=== PATIENT | male | born 1950 | race African-American/Black ===

== ENCOUNTER 2017-01-07 08:45 | Emergency (ER) | payer MEDICARE, OTHER ==
[~2017-01-07] VITALS: Ht 170.2 cm; Wt 104.3 kg
[~2017-01-07 08:45] MED LIST: ACETAMINOPHEN-1 EAC1 ORAL; ALBUTEROL SULF8.5 GM INH; AMBIEN10 MG PO; AMLODIPINE BESY10 MG ORAL; AZELASTINE137 MCG/0. NS; AZITHROMYCIN250 MG ORAL; CELEBREX200 MG ORAL; CELEBREX200 MG PO; CLARITIN10 M2 ORAL; COLACE100 MG PO; COZAAR25 MG ORAL; COZAAR25 MG PO; COZAAR50 MG ORAL; CYCLOBENZAPRINE10 MG ORAL; FLONASE1 SPRAYS; FUROSEMIDE20 M1 ORAL; FUROSEMIDE40 MG ORAL; GABAPENTIN300 MG ORAL; GUAIFENESIN1200 MG PO; HYDROCHLOROTHIA25 MG ORAL; IBUPROFEN600 MG ORAL; INDOCIN25 MG ORAL; INDOCIN25 MG PO; KEFLEX250 MG ORAL; KEFLEX500 MG ORAL; LOSARTAN-HCTZ1 EAC2; MEDROL DOSEPAK4 MG ORAL; NORCO 5-325 TA1 EACH ORAL; OMEPRAZOLE10 M1 ORAL; PHENERGAN6.25 MG/5 ORAL; PROMETHAZINE-C118 M1 ORAL; PROTONIX20 MG PO; REGLAN10 MG PO; TYLENOL325 MG ORAL; ULTRAM50 MG PO; UNKNOWN BP MED; VALIUM2 MG ORAL; ZITHROMAX250 MG ORAL
--- NOTE | 2017-01-07 09:08 | Emergency Room Report ---
History of Present Illness General Chief Complaint: Upper Respiratory Illness Source: Patient, Medical Record Present Illness HPI Patient presents with complaints of cough and congestion for the past 7 days Complaining that he has increased sputum production at this time Denies any chest pain denies any pleurisy Denies any obvious fevers Denies any neck pain or photophobia Denies any leg swelling As the symptoms persisted he was concerning came to the ER He also feels his sinuses are irritated Allergies: Coded Allergies: IODINE (Verified Allergy, Unknown, 06/07/10) Patient History Past Medical History: see triage record Pertinent Family History: none Reviewed Nursing Documentation: PMH: Agreed, PSxH: Agreed Nursing Documentation-PMH Hx Hypertension: Yes Hx Asthma: No Hx COPD: No Hx Diabetes: No Hx Cancer: Yes - right kindey Hx Gastrointestinal Problems: Yes Hx Dialysis: No Hx Neurological Problems: No Review of Systems All Other Systems: negative except mentioned in HPI Physical Exam Vital Signs Date Time Temp Pulse Resp B/P Pulse Ox O2 Delivery O2 Flow Rate FiO2 01/07/17 08:50 98.1 84 16 127/73 97 Room Air Sp02 EP Interpretation: reviewed, normal General Appearance: well appearing, no apparent distress Head: normocephalic, atraumatic Eyes: bilateral eye EOMI, bilateral eye PERRL ENT: hearing grossly normal, normal pharynx, TMs + canals normal, uvula midline Neck: full range of motion, supple, no meningismus, no bony tend Respiratory: lungs clear, normal breath sounds, no rhonchi, no respiratory distress, no retraction, no accessory muscle use Cardiovascular #1: normal peripheral pulses, regular rate, rhythm, no edema, no gallop, no JVD, no murmur Gastrointestinal: normal bowel sounds, non tender, soft, no mass, no organomegaly, non-distended, no guarding, no hernia, no pulsatile mass, no rebound Genitourinary: no CVA tenderness Musculoskeletal: normal inspection, back normal Neurologic: oriented x3, responsive, engine dynamometer tester III-XII nml as tested, motor strength/ tone normal, sensory intact Psychiatric: mood/affect normal Skin: normal color, no rash, warm/dry, palpation normal Lymphatic: normal inspection, no adenopathy Medical Decision Making Diagnostic Impression: Primary Impression: Sinusitis ER Course Her chest x-ray imaging and examination here is appropriate Patient has done well throughout his stay was given breathing treatment Appears to have a component of sinus infection as well and was placed on antibiotics for that At this time stable for close outpatient followup Chest X-Ray Diagnostic Results EP Interpretation: Yes Findings: no consolidation, no effusion, no pneumothorax Number of Views: 1 Last Vital Signs Date Time Temp Pulse Resp B/P Pulse Ox O2 Delivery O2 Flow Rate FiO2 01/07/17 09:04 88 14 Room Air 01/07/17 08:50 98.1 127/73 97 Status: improved Disposition: HOME, SELF-CARE Condition: Stable Scripts Guaifenesin/Codeine Phos* (ROBITUSSIN AC*) 118 Ml Liquid 5 ML ORAL Q8HR Y for For Cough, #118 ML 0 Refills Prov: TOM KOO D.O. 01/07/17 Cetirizine Hcl* (ZYRTEC*) 10 Mg Tablet 10 MG ORAL DAILY, #20 TAB 0 Refills Prov: TOM KOO D.O. 01/07/17 Azithromycin* (ZITHROMAX*) 250 Mg Tablet 250 MG ORAL DAILY, #6 TAB 0 Refills Take two tablets by mouth today, then take one tablet by mouth daily for four days Prov: TOM KOO D.O. 01/07/17 Additional Instructions: Patient is provided with the discharge instructions notified to follow up with primary doctor in the next 2-3 days otherwise return to the er with any worsening symptoms. Please note that this report is being documented using [employer] technology. This can lead to erroneous entry secondary to incorrect interpretation by the dictating instrument. TOM KOO D.O. Jan 07, 2017 09:08
[2017-01-07] MEDS: Ipratropium 0.02% Inh Soln 2.5ml UD HHN ONE (09:36)
[2017-01-07] MEDS: Albuterol ud Inhalation HHN ONE (09:36)
[2017-01-07] MEDS ORDERED: ZYRTEC10 MG ORAL (09:41)
[2017-01-07] MEDS ORDERED: AZITHROMYCIN250 MG ORAL (09:41)
[2017-01-07] MEDS ORDERED: GUAIFENESIN-CO118 M1 ORAL (09:41)
[2017-01-07 10:16] VITALS: BP 122/67
--- NOTE | 2017-01-07 13:54 | Diagnostic Imaging Report ---
Indication: Dyspnea Comparison: 08/18/16 A single view chest radiograph was obtained. Findings: No definite infiltrate or pulmonary vascular congestion identified. The heart is normal in size. The aorta is mildly enlarged consistent with atherosclerotic vascular disease. The bones are osteopenic. Impression: No acute disease
== END 2017-01-07 10:16 | disposition home or self-care (01) ==
LOC: EMR 09:24
DX: J06.9 Acute upper respiratory infection, unspecified (principal); R05 Cough; I10 Essential (primary) hypertension; Z85.528 Personal history of other malignant neoplasm of kidney
CPT/HCPCS: 71010; 94640; 94664; 99284

== ENCOUNTER 2017-05-08 20:51 | Emergency (ER) | payer MEDICARE, OTHER ==
[~2017-05-08] VITALS: Ht 170.2 cm; Wt 94.8 kg
[~2017-05-08 20:51] MED LIST changes: +GUAIFENESIN-CO118 M1 ORAL; +ZYRTEC10 MG ORAL
[2017-05-08 21:10] VITALS: BP 165/71
[2017-05-08] MEDS ORDERED: CLARITIN-D 121 EAC1 ORAL (21:19)
--- NOTE | 2017-05-08 21:25 | Emergency Room Report ---
History of Present Illness General Chief Complaint: Earache Source: Patient Present Illness HPI Patient is a 66-year-old male presented after increased left-sided earache. Patient gradual onset of symptoms. Patient had recurrent left-sided ear infections. Patient reported having increased pain to his left ear. This is sharp in nature. He had not been having any fever. He reported having some slight decreased hearing. He had previously seen ENT. Patient had prior history of one kidney. He denied any tinnitus or difficulty breathing Allergies: Coded Allergies: IODINE (Verified Allergy, Unknown, 06/07/10) Patient History Reviewed Nursing Documentation: PMH: Agreed, PSxH: Agreed Nursing Documentation-PM Past Medical History: No History, Except For Hx Hypertension: Yes Hx Asthma: No Hx COPD: No Hx Diabetes: No Hx Cancer: Yes - right kindey Hx Gastrointestinal Problems: Yes Hx Dialysis: No Hx Neurological Problems: No Review of Systems All Other Systems: negative except mentioned in HPI Physical Exam Vital Signs Date Time Temp Pulse Resp B/P Pulse Ox O2 Delivery O2 Flow Rate FiO2 05/08/17 21:04 97.5 89 16 165/71 100 Room Air General Appearance: well appearing, no apparent distress, alert, GCS 15 Head: normocephalic, atraumatic ENT: hearing grossly normal, normal voice Neck: full range of motion, supple Respiratory: no respiratory distress, speaking full sentences Cardiovascular #1: normal inspection, regular rate, rhythm, no edema Gastrointestinal: normal inspection Musculoskeletal: no calf tenderness Neurologic: normal gait Psychiatric: mood/affect normal Skin: no rash Medical Decision Making Diagnostic Impression: Primary Impression: Earache, left Additional Impression: Acute serous otitis media, left ear ER Course Patient presented for ear pain. Differential diagnosis included was not limited to otitis media, serous otitis, malignant otitis externa, foreign body , cellulitis, mastoiditis, carotid dissection, myocardial infarction among others. Patient's benign exam and does not appear to require any further imaging or laboratory testing at this time. Patient advised to gargle salt water. Patient is advised followup with ENT. Patient advised to return if he had any concerns. He is given prescription for Claritin-D. Last Vital Signs Date Time Temp Pulse Resp B/P Pulse Ox O2 Delivery O2 Flow Rate FiO2 05/08/17 21:04 97.5 89 16 165/71 100 Room Air Status: unchanged Disposition: HOME, SELF-CARE Condition: Stable Scripts Loratadine/Pseudoephedrine (CLARITIN-D 12 HOUR TABLET) 1 Each Tab.er.12h 1 TAB ORAL EVERY 12 HOURS, #30 TAB Prov: Narayan Burkett 05/08/17 Patient Instructions: Serous Otitis Media Narayan Burkett May 08, 2017 21:25
== END 2017-05-08 21:38 | disposition home or self-care (01) ==
LOC: EMR 21:38
DX: H65.02 Acute serous otitis media, left ear (principal); I10 Essential (primary) hypertension; Z85.528 Personal history of other malignant neoplasm of kidney
CPT/HCPCS: 99283

== ENCOUNTER 2017-06-01 10:04 | Emergency (ER) | payer MEDICARE, OTHER ==
[~2017-06-01] VITALS: Ht 167.6 cm; Wt 86.2 kg
[~2017-06-01 10:04] MED LIST changes: +CLARITIN-D 121 EAC1 ORAL
[2017-06-01 10:25] VITALS: BP 147/72
--- NOTE | 2017-06-01 12:37 | Emergency Room Report ---
History of Present Illness General Chief Complaint: Upper Extremity Injury Source: Patient Present Illness HPI Patient states he notes a blister on his right hand that started about a week ago. He states that it has gotten larger and a little bit red. He is concerned about an infection. He denies fever or chills. He has no other complaints. Allergies: Coded Allergies: IODINE (Verified Allergy, Unknown, 06/07/10) Patient History Past Surgical History: other - 1 kidney, multiple MSK surgeries. Social History: Denies: alcohol use, drug use, smoking Reviewed Nursing Documentation: PMH: Agreed, PSxH: Agreed Nursing Documentation-PMH Hx Hypertension: Yes Hx Asthma: No Hx COPD: No Hx Diabetes: No Hx Cancer: Yes - right kindey Hx Gastrointestinal Problems: Yes Hx Dialysis: No Hx Neurological Problems: No Review of Systems All Other Systems: negative except mentioned in HPI Physical Exam Vital Signs Date Time Temp Pulse Resp B/P Pulse Ox O2 Delivery O2 Flow Rate FiO2 06/01/17 10:18 98.4 89 14 150/75 97 Room Air Sp02 EP Interpretation: reviewed, normal General Appearance: no apparent distress, alert, GCS 15, non-toxic Head: normocephalic, atraumatic Eyes: bilateral eye PERRL, bilateral eye normal inspection ENT: hearing grossly normal, normal pharynx, no angioedema, normal voice Neck: full range of motion, supple/symm/no masses Respiratory: no respiratory distress, no retraction, no accessory muscle use, speaking full sentences Rectal: deferred Musculoskeletal: back normal, gait/station normal, normal range of motion, other - L. hand with dime sized lesion with clear fluid and mild erythema surrounding it. Neurologic: alert, oriented x3, responsive, motor strength/tone normal, sensory intact, speech normal Psychiatric: judgement/insight normal, memory normal, mood/affect normal, no suicidal/homicidal ideation Skin: normal color, no rash, warm/dry, well hydrated Medical Decision Making Diagnostic Impression: Primary Impression: Blister ER Course Patient has findings on the hand consistent with a posterior. There was a small amount of erythema around the blister. I will go ahead and give the patient a course of antibiotics as a precaution. However, there is no significant infection identified. The patient is given return precautions and followup instructions. Last Vital Signs Date Time Temp Pulse Resp B/P Pulse Ox O2 Delivery O2 Flow Rate FiO2 06/01/17 10:25 98.3 85 14 147/72 97 Room Air Status: improved Disposition: HOME, SELF-CARE Condition: Improved Referrals: NON PHYSICIAN (PCP) JOSE MITCHELL D.O. Jun 01, 2017 12:37
[2017-06-01] MEDS ORDERED: DOXYCYCLINE MO100 MG ORAL (12:38)
[2017-06-01 12:54] VITALS: BP 144/69
[2017-06-01 12:55] VITALS: BP 144/69
== END 2017-06-01 12:56 | disposition home or self-care (01) ==
LOC: EMR 10:29
DX: S60.521A Blister (nonthermal) of right hand, initial encounter (principal); X58.XXXA Exposure to other specified factors, initial encounter; Y92.89 Other specified places as the place of occurrence of the external cause; I10 Essential (primary) hypertension; Z85.528 Personal history of other malignant neoplasm of kidney
CPT/HCPCS: 99283

== ENCOUNTER 2017-06-01 12:53 | Outpatient (CLI) | payer MEDICARE, OTHER ==
[~2017-06-01 12:53] MED LIST changes: +DOXYCYCLINE MO100 MG ORAL
[2017-06-01 13:19] LABS: BASOPHILS % (AUTO) 1.2 % (0.0-2.0); EOSINOPHILS % (AUTO) 1.3 % (0.0-3.0); LYMPHOCYTES % (AUTO) 26.2 % (20.0-45.0); MEAN CORPUSCULAR HEMOGLOBIN 28.2 PG (27.0-31.0); MEAN CORPUSCULAR HGB CONC 32.1 G/DL (32.0-36.0); MEAN CORPUSCULAR VOLUME 88 FL (80-99); MEAN PLATELET VOLUME 8.7 FL (6.5-10.1); NEUTROPHILS % (AUTO) 66.3 % (45.0-75.0); PLATELET COUNT 239 K/UL (150-450); RED BLOOD COUNT 4.69 M/UL (4.70-6.10); WHITE BLOOD COUNT 8.9 K/UL (4.8-10.8)
[2017-06-01 13:29] LABS: ALBUMIN/GLOBULIN RATIO 1.1 (1.0-2.7); CALCIUM 9.3 mg/dL (8.6-10.2); CREATININE 1.5 mg/dL (0.7-1.2); GLOMERULAR FILTRATION RATE 56.6 mL/min (>60); POTASSIUM 4.2 mEQ/L (3.4-4.9); TOTAL PROTEIN 8.3 g/dL (6.6-8.7)
[2017-06-02 10:15] LABS: PSA % FREE 30.8 % (.); PSA FREE 0.4 ng/mL; PSA TOTAL 1.3 ng/mL (0.0-4.0)
== END 2017-06-01 14:53 | disposition home or self-care (01) ==
LOC: LAB 12:53
DX: I10 Essential (primary) hypertension (principal); M54.9 Dorsalgia, unspecified
CPT/HCPCS: 36415; 80053; 80061; 84153; 84154; 85025

== ENCOUNTER 2017-10-17 14:26 | Outpatient (CLI) | payer MEDICARE, OTHER ==
[2017-10-17 14:55] LABS: BASOPHILS % (AUTO) 1.3 % (0.0-2.0); EOSINOPHILS % (AUTO) 2.1 % (0.0-3.0); MEAN CORPUSCULAR HEMOGLOBIN 27.7 PG (27.0-31.0); MEAN CORPUSCULAR HGB CONC 31.2 G/DL (32.0-36.0); MEAN CORPUSCULAR VOLUME 89 FL (80-99); MEAN PLATELET VOLUME 8.8 FL (6.5-10.1); MONOCYTES % (AUTO) 4.4 % (1.0-10.0); NEUTROPHILS % (AUTO) 61.2 % (45.0-75.0); PLATELET COUNT 202 K/UL (150-450); RED BLOOD COUNT 4.68 M/UL (4.70-6.10); RED CELL DISTRIBUTION WIDTH 12.9 % (11.6-14.8)
[2017-10-17 15:21] LABS: ALANINE AMINOTRANSFERASE 46 U/L (12-78); ALBUMIN/GLOBULIN RATIO 0.8 (1.0-2.7); ANION GAP 9 mmol/L (5-15); ASPARTATE AMINO TRANSFERASE 28 U/L (15-37); CALCIUM 9.5 MG/DL (8.5-10.1); CARBON DIOXIDE 26 MMOL/L (21-32); CHLORIDE 101 MMOL/L (98-107); CREATININE 1.9 MG/DL (0.55-1.30); SODIUM 136 MMOL/L (136-145); TOTAL PROTEIN 8.6 G/DL (6.4-8.2)
== END 2017-10-17 16:26 | disposition home or self-care (01) ==
LOC: LAB 14:26
DX: I10 Essential (primary) hypertension (principal)
CPT/HCPCS: 36415; 80053; 85025

== ENCOUNTER 2018-01-18 16:20 | Emergency (ER) | payer MEDICARE, OTHER ==
[~2018-01-18] VITALS: Ht 170.2 cm; Wt 99.8 kg
--- NOTE | 2018-01-18 16:41 | Emergency Room Report ---
History of Present Illness General Chief Complaint: Pain Source: Patient, Medical Record Present Illness HPI 67-year-old male walk-in with 2-3 days of right and left side pain. States pain worse when he leans on the right side when he is reading in bed or in car. States better when he stands up, stretched States that one month ago he had URI symptoms including a "bad cough". He was treated and evaluated by his PMD for this already, but he is "still getting over". He did not take any pain medication He has history of right nephrectomy many years ago, CK D, hypertension Is mostly interested in just "making sure I'm okay". Allergies: Coded Allergies: IODINE (Verified Allergy, Unknown, 06/07/10) Patient History Past Medical History: HTN, renal disease Past Surgical History: other - right nephrectomy Pertinent Family History: none Social History: Denies: smoking, alcohol use, drug use Immunizations: UTD Reviewed Nursing Documentation: PMH: Agreed, PSxH: Agreed Nursing Documentation-PMH Hx Hypertension: Yes Hx Asthma: No Hx COPD: No Hx Diabetes: No Hx Cancer: Yes - right kindey Hx Gastrointestinal Problems: Yes - acid reflux Hx Dialysis: No Hx Neurological Problems: No Review of Systems All Other Systems: negative except mentioned in HPI Physical Exam Vital Signs Date Time Temp Pulse Resp B/P (MAP) Pulse Ox O2 Delivery O2 Flow Rate FiO2 01/18/18 16:27 97.8 91 18 168/83 96 Room Air 97.9 Sp02 EP Interpretation: reviewed, normal General Appearance: normal inspection, well appearing, no apparent distress, alert, GCS 15, non-toxic Head: normocephalic, atraumatic Eyes: bilateral eye PERRL, bilateral eye EOMI ENT: normal ENT inspection, hearing grossly normal, normal pharynx, no angioedema, normal voice, TMs + canals normal, uvula midline, moist mucus membranes Neck: normal inspection, full range of motion, supple, thyroid normal, no meningismus, no bony tend Respiratory: normal inspection, lungs clear, normal breath sounds, no rhonchi, no respiratory distress, no retraction, no accessory muscle use, no wheezing, speaking full sentences, other - Bilateral R>L lower chest wall/rib ttp. Cardiovascular #1: regular rate, rhythm, no edema, no JVD, normal capillary refill Gastrointestinal: normal inspection, normal bowel sounds, non tender, soft, no mass, no peritonitis, non-distended, no guarding, no hernia, no pulsatile mass Genitourinary: no CVA tenderness Musculoskeletal: normal inspection, back normal, normal range of motion, no calf tenderness, pelvis stable, Mamta's Sign negative Neurologic: normal inspection, alert, oriented x3, responsive, echocardiograph tech III-XII nml as tested, motor strength/tone normal, cerebellar normal, normal gait, speech normal Psychiatric: normal inspection, judgement/insight normal, mood/affect normal, no suicidal/homicidal ideation, no delusions Skin: normal inspection, normal color, no rash Lymphatic: normal inspection, no adenopathy Medical Decision Making Diagnostic Impression: Primary Impression: Right-sided chest wall pain Additional Impression: Costochondral chest pain ER Course Vital signs stable, afebrile Exam tenderness is more the chest wall, right and left lower ribs Is no focal abdominal tenderness on exam or CVAT Likely costochondritis given recent URI symptoms Advised patient take Tylenol, apply ice as needed for pain Avoid NSAIDs given nephrectomy and known CK D states he doesn't want any pain medication, prescriptions, just wants to be reassured ER course: Patient has remained stable during ED stay. Disposition: Patient is to be discharged to home. Patient is instructed to follow up with their primary care doctor within 5 days. Strict return precautions discussed with patient such as fever, chills, worsening/severe pain, nausea, vomiting, which may indicate severe illness. Patient verbalizes understanding and agrees with plan. Please note that this Emergency Department Report was dictated using [employer] engineer technology software, occasionally this can lead to erroneous entry secondary to interpretation by the dictation equipment Last Vital Signs Date Time Temp Pulse Resp B/P (MAP) Pulse Ox O2 Delivery O2 Flow Rate FiO2 01/18/18 16:27 97.8 91 18 168/83 96 Room Air 97.9 Status: improved Disposition: HOME, SELF-CARE EVELIO HERNANDEZ M.D. Jan 18, 2018 16:41
[2018-01-18 16:47] VITALS: BP 168/83
[2018-01-18 17:03] VITALS: BP 139/49
== END 2018-01-18 17:03 | disposition home or self-care (01) ==
LOC: EMR 17:00
DX: R07.89 Other chest pain (principal); I10 Essential (primary) hypertension; K21.9 Gastro-esophageal reflux disease without esophagitis; Z85.528 Personal history of other malignant neoplasm of kidney; Z90.5 Acquired absence of kidney
CPT/HCPCS: 99283

== ENCOUNTER → 2018-04-26 | Outpatient (CLI) | payer MEDICARE, OTHER ==
[2018-04-26 14:18] LABS: BASOPHILS % (AUTO) 1.4 % (0.0-2.0); EOSINOPHILS % (AUTO) 2.3 % (0.0-3.0); HEMATOCRIT 40.8 % (42.0-52.0); HEMOGLOBIN 13.2 G/DL (14.2-18.0); MEAN CORPUSCULAR VOLUME 85 FL (80-99); MONOCYTES % (AUTO) 4.3 % (1.0-10.0); PLATELET COUNT 224 K/UL (150-450); RED BLOOD COUNT 4.81 M/UL (4.70-6.10); RED CELL DISTRIBUTION WIDTH 12.6 % (11.6-14.8); WHITE BLOOD COUNT 7.9 K/UL (4.8-10.8)
[2018-04-26 15:01] LABS: ALANINE AMINOTRANSFERASE 33 U/L (12-78); ALBUMIN 3.7 G/DL (3.4-5.0); ALBUMIN/GLOBULIN RATIO 0.8 (1.0-2.7); ALKALINE PHOSPHATASE 134 U/L (46-116); ANION GAP 9 mmol/L (5-15); ASPARTATE AMINO TRANSFERASE 20 U/L (15-37); BILIRUBIN,TOTAL 0.8 MG/DL (0.2-1.0); BLOOD UREA NITROGEN 10 mg/dL (7-18); CALCIUM 8.8 MG/DL (8.5-10.1); CARBON DIOXIDE 27 MMOL/L (21-32); CHLORIDE 104 MMOL/L (98-107); CHOLESTEROL 124 MG/DL (< 200); CREATININE 1.7 MG/DL (0.55-1.30); HDL CHOLESTEROL 44 MG/DL (40-60); POTASSIUM 4.3 MMOL/L (3.5-5.1); SODIUM 140 MMOL/L (136-145); TRIGLYCERIDES 118 MG/DL (30-150)
== END | disposition home or self-care (01) ==
LOC: LAB 14:00
DX: I10 Essential (primary) hypertension (principal); M54.9 Dorsalgia, unspecified
CPT/HCPCS: 36415; 80053; 80061; 85025

== ENCOUNTER 2018-06-19 10:25 | Emergency (ER) | payer MEDICARE, OTHER ==
[~2018-06-19] VITALS: Ht 167.6 cm; Wt 95.3 kg
[2018-06-19 10:35] VITALS: BP 153/73
[2018-06-19] MEDS ORDERED: Ipratropium 0.02% Inh Soln 2.5ml UD HHN ONE (11:00)
[2018-06-19] MEDS ORDERED: Albuterol ud Inhalation HHN ONE (11:00)
[2018-06-19] MEDS ORDERED: ALBUTEROL SULF8.5 GM INH (11:24)
[2018-06-19] MEDS ORDERED: PREDNISONE20 MG ORAL (11:24)
[2018-06-19] MEDS ORDERED: AMOXICILLIN500 MG ORAL (11:24)
[2018-06-19] MEDS ORDERED: PROMETHAZINE-C118 M1 ORAL (11:24)
[2018-06-19 11:30] VITALS: BP 153/73
--- NOTE | 2018-06-21 06:52 | Emergency Room Report ---
History of Present Illness General Chief Complaint: Upper Respiratory Illness Source: Patient, Medical Record Present Illness HPI 67-year-old male presents ED for evaluation. Complaining of cough and congestion times one week. Cough is productive with phlegm. States he is trying [id number] medication without relief. States he is using his inhaler without relief. Denies fevers or chills. Denies chest pain or shortness of breath. Denies sick contacts or recent travel. No other aggravating relieving factors. Denies any other associated symptoms Allergies: Coded Allergies: IODINE (Verified Allergy, Unknown, 06/07/10) Patient History Past Medical History: HTN, asthma, GERD Past Surgical History: other - kidney removed Pertinent Family History: none Social History: Denies: smoking, alcohol use, drug use Immunizations: UTD Reviewed Nursing Documentation: PMH: Agreed; PSxH: Agreed Nursing Documentation-PMH Past Medical History: No History, Except For Hx Hypertension: Yes Hx Asthma: No Hx COPD: No Hx Diabetes: No Hx Cancer: Yes - right kindey Hx Gastrointestinal Problems: Yes - acid reflux Hx Dialysis: No Hx Neurological Problems: No Review of Systems All Other Systems: negative except mentioned in HPI Physical Exam Vital Signs Date Time Temp Pulse Resp B/P (MAP) Pulse Ox O2 Delivery O2 Flow Rate FiO2 06/19/18 10:28 98.0 80 18 153/73 97 Room Air 98.1 06/19/18 11:00 21 Sp02 EP Interpretation: reviewed, normal General Appearance: no apparent distress, alert, GCS 15, non-toxic Head: normocephalic, atraumatic Eyes: bilateral eye normal inspection, bilateral eye PERRL ENT: hearing grossly normal, normal pharynx, no angioedema, normal voice Neck: full range of motion, supple/symm/no masses Respiratory: chest non-tender, normal breath sounds, speaking full sentences, wheezing Cardiovascular #1: regular rate, rhythm, no edema Cardiovascular #2: 2+ carotid (R), 2+ carotid (L), 2+ radial (R), 2+ radial (L) , 2+ dorsalis pedis (R), 2+ dorsalis pedis (L) Gastrointestinal: normal bowel sounds, non tender, soft, non-distended, no guarding, no rebound Rectal: deferred Genitourinary: normal inspection, no CVA tenderness Musculoskeletal: back normal, gait/station normal, normal range of motion, non- tender Neurologic: alert, oriented x3, responsive, motor strength/tone normal, sensory intact, speech normal Psychiatric: judgement/insight normal, memory normal, mood/affect normal, no suicidal/homicidal ideation Reflexes: 3+ bicep (R), 3+ bicep (L), 3+ tricep (R), 3+ tricep (L), 3+ knee (R) , 3+ knee (L) Skin: normal color, no rash, warm/dry, well hydrated Lymphatic: no adenopathy Medical Decision Making Diagnostic Impression: Primary Impression: Atypical pneumonia ER Course Hospital Course 67-year-old male presents ED complaining of cough x 1 week Differential diagnoses include: URI, pharyngitis, otitis media, asthma Clinical course Patient placed on stretcher. After initial history, physical exam reveals an elderly male in no acute distress. Bilateral TM unremarkable. No pharyngeal erythema. No tonsillar exudates. No lymphadenopathy. Diffuse wheezing bilaterally Given breathing treatment, prednisone. Wheezing improved on reassessment Given age, comorbidities, presentation we'll treat as atypical pneumonia Diagnosis - atypical pneumonia Stable and discharged home with Rx amoxicillin, promethazine/codeine, prednisone , albuterol. Instructed to followup with PMD. Return to ED if symptoms recur or worsen Last Vital Signs Date Time Temp Pulse Resp B/P (MAP) Pulse Ox O2 Delivery O2 Flow Rate FiO2 06/19/18 11:30 98.1 80 20 153/73 99 Room Air 21 98.1 Status: improved Disposition: HOME, SELF-CARE Condition: Stable Scripts Codeine/Promethazine Hcl* (PROMETHAZINE-CODEINE SYRUP*) 118 Ml Syrup 5 ML ORAL Q6H PRN for For Cough, #118 ML 0 Refills Prov: Tha Michael MD 06/19/18 Albuterol Sulfate* (ALBUTEROL SULFATE MDI*) 8.5 Gm Hfa.aer.ad 2 PUFF INH Q6H, #1 EA 0 Refills Prov: Tha Michael MD 06/19/18 Prednisone* (PREDNISONE*) 20 Mg Tablet 40 MG ORAL DAILY, #10 TAB Prov: Tha Michael MD 06/19/18 Amoxicillin* (AMOXIL*) 500 Mg Capsule 500 MG ORAL THREE TIMES A DAY, #21 CAP Prov: Tha Michael MD 06/19/18 Patient Instructions: Community-Acquired Pneumonia, Adult, [id number] Tha Michael MD Jun 21, 2018 06:52
== END 2018-06-19 11:31 | disposition home or self-care (01) ==
LOC: EMR 10:47
DX: J18.9 Pneumonia, unspecified organism (principal); I10 Essential (primary) hypertension; K21.9 Gastro-esophageal reflux disease without esophagitis; Z85.528 Personal history of other malignant neoplasm of kidney; Z91.048 Other nonmedicinal substance allergy status
CPT/HCPCS: 94640; 94664; 99285

== ENCOUNTER 2018-11-02 14:52 | Emergency (ER) | payer MEDICARE, OTHER ==
[~2018-11-02] VITALS: Ht 170.2 cm; Wt 104.3 kg
[~2018-11-02 14:52] MED LIST changes: +AMOXICILLIN500 MG ORAL; +PREDNISONE20 MG ORAL
[2018-11-02 15:00] VITALS: BP 121/68
--- NOTE | 2018-11-02 15:00 | NUR ---
ED Nurse Note: Pt walked into ED c/o flu like s/s for three days, pt denies fever. Pt AA&ox4, gcs=15, skin warm and dry, resp even and unlabored, noted nonproductive dry cough, -n/v/d, ambulates w/ steady gait, airway patent, nasal congestion noted. Will cont monitor.
--- NOTE | 2018-11-02 15:38 | Emergency Room Report ---
History of Present Illness General Chief Complaint: Upper Respiratory Illness Source: Patient Present Illness HPI 67-year-old male presents to the emergency department complaining of nasal congestion 3 days. Patient reports difficulty breathing through his nose with moderate amount of rhinorrhea. Patient denies sore throat he states he has a dry cough every now and then but otherwise is not complaining of respiratory symptoms. Patient denies headache, photophobia he denies neck pain or stiffness. Patient denies swollen tender lymph nodes. Patient denies fevers or chills. Pt reports cough is not a problem for him right now. He denies pain at this time. Allergies: Coded Allergies: IODINE (Verified Allergy, Unknown, 06/07/10) Patient History Past Medical History: see triage record, HTN, renal disease, other - Ca. Past Surgical History: none Pertinent Family History: none Immunizations: UTD Reviewed Nursing Documentation: PMH: Agreed; PSxH: Agreed Nursing Documentation-PM Past Medical History: No History, Except For Hx Hypertension: Yes Hx Asthma: No Hx COPD: No Hx Diabetes: No Hx Cancer: Yes - right kindey Hx Gastrointestinal Problems: Yes - acid reflux Hx Dialysis: No Hx Neurological Problems: No Review of Systems All Other Systems: negative except mentioned in HPI Physical Exam Vital Signs Date Time Temp Pulse Resp B/P (MAP) Pulse Ox O2 Delivery O2 Flow Rate FiO2 11/02/18 14:56 98.2 100 20 121/68 98 Room Air Sp02 EP Interpretation: reviewed, normal General Appearance: no apparent distress, alert, GCS 15, non-toxic Head: normocephalic, atraumatic Eyes: bilateral eye normal inspection, bilateral eye PERRL ENT: hearing grossly normal, normal pharynx, normal voice, TMs + canals normal , uvula midline, moist mucus membranes, nasal congestion - clear rhinorrhea no purulence, boggy turbinates. mild maxillary sinus ttp, no frontal sinus ttp. Neck: full range of motion Respiratory: chest non-tender, lungs clear, normal breath sounds, speaking full sentences Cardiovascular #1: regular rate, rhythm, normal capillary refill Musculoskeletal: back normal, gait/station normal, normal range of motion, non- tender Neurologic: alert, oriented x3, responsive, motor strength/tone normal, sensory intact, normal gait, speech normal, grossly normal Psychiatric: judgement/insight normal Skin: normal color, no rash, warm/dry, well hydrated Lymphatic: no adenopathy Medical Decision Making PA Attestation Dr. Cantrell is my supervising Physician whom patient management has been discussed with. Diagnostic Impression: Primary Impression: Nasal sinus congestion Additional Impression: Upper respiratory symptom ER Course 67-year-old male presents to the emergency department complaining of nasal congestion 3 days. Patient reports difficulty breathing through his nose with moderate amount of rhinorrhea. Patient denies sore throat he states he has a dry cough every now and then but otherwise is not complaining of respiratory symptoms. Patient denies headache, photophobia he denies neck pain or stiffness. Patient denies swollen tender lymph nodes. Patient denies fevers or chills. Pt reports cough is not a problem for him right now. He denies pain at this time. Ddx considered but are not limited to URI, pneumonia, PE, strep pharyngitis, meningitis. Vital signs: Pt. is afebrile, the remaining VS are WNL H&PE are most consistent with nasal congestion secondary to a URI- no meningeal signs, oropharynx is not involved, no evidence of bacterial infection at this time. Pt. does not meet sinusitis abx criteria. ORDERS: none required at this time, the diagnosis is clinical ED INTERVENTIONS: None required at this time. DISCHARGE: At this time pt. is stable for d/c to home. Will provide printed patient care instructions, and any necessary prescriptions. Care plan and follow up instructions have been discussed with the patient prior to discharge. Last Vital Signs Date Time Temp Pulse Resp B/P (MAP) Pulse Ox O2 Delivery O2 Flow Rate FiO2 11/02/18 15:00 100 20 Room Air 11/02/18 15:00 98.2 121/68 98 Disposition: HOME, SELF-CARE Condition: Stable Scripts Chlorpheniramine Maleate (CHLOR-TRIMETON) 4 Mg Tablet 4 MG PO Q6HR, #30 TAB Prov: Gloria Hilliard 11/02/18 Additional Instructions: Take medications as directed. Follow up with a Primary Care Provider in 3-5 days, even if your symptoms have resolved. --Please review list of primary care clinics, if you do not already have a primary care provider Return sooner to ED if new symptoms occur, or current symptoms become worse. - Please note that this Emergency Department Report was dictated using [employer] developer technology software, occasionally this can lead to erroneous entry secondary to interpretation by the dictation equipment. Gloria Hilliard Nov 02, 2018 15:38
[2018-11-02] MEDS ORDERED: CHLOR-TRIMETON4 MG PO (15:46)
[2018-11-02 15:55] VITALS: BP 118/98
--- NOTE | 2018-11-02 15:55 | NUR ---
ED Nurse Note: Pt discharge instruction provided w/ prescription, id band removed, pt education done via discussion and handout, pt verbalized understanding and agrees with plan, pt advised to follow up with pcp regarding pt's condition, pt advised to return to ed if s/s worsen or new s/s develop.
[2018-11-03] MEDS ORDERED: IBUPROFEN600 MG ORAL (21:22)
[2018-11-03] MEDS ORDERED: ROBAXIN-750750 MG PO (21:22)
== END 2018-11-02 16:10 | disposition home or self-care (01) ==
LOC: EMR 15:58
DX: R09.81 Nasal congestion (principal); J06.9 Acute upper respiratory infection, unspecified; I10 Essential (primary) hypertension; Z85.528 Personal history of other malignant neoplasm of kidney
CPT/HCPCS: 99282

== ENCOUNTER 2018-11-03 19:26 | Emergency (ER) | payer MEDICARE, OTHER ==
[~2018-11-03] VITALS: Ht 170.2 cm; Wt 104.3 kg
[~2018-11-03 19:26] MED LIST changes: +CHLOR-TRIMETON4 MG PO
[2018-11-03] MEDS: Methocarbamol 750mg tab ORAL ONE (20:10)
[2018-11-03] MEDS: Acetaminophen 500mg (ES) tab ORAL ONE (20:16)
[2018-11-03 20:27] VITALS: BP 126/64
[2018-11-03] MEDS ORDERED: IBUPROFEN600 MG ORAL (21:22)
[2018-11-03] MEDS ORDERED: ROBAXIN-750750 MG PO (21:22)
[2018-11-03 21:25] VITALS: BP 126/64
--- NOTE | 2018-11-03 22:13 | Emergency Room Report ---
History of Present Illness General Chief Complaint: Multiple Trauma/Fall Source: Patient Present Illness HPI 67-year-old male presents ED for evaluation. States that earlier today he was walking and tripped and fell hitting his head on the sidewalk. Denies LOC. complaining of headache and lower back pain. Also notes abrasions to right hand. Tetanus is up-to-date. Pain is throbbing, 5 out of 10, nonradiating. Denies photophobia or blurry vision. Denies nausea or vomiting. No other aggravating relieving factors. Denies any other associated symptoms Allergies: Coded Allergies: IODINE (Verified Allergy, Unknown, 06/07/10) Patient History Past Medical History: HTN, GERD Past Surgical History: none Pertinent Family History: none Social History: Denies: smoking, alcohol use, drug use Immunizations: UTD Reviewed Nursing Documentation: PMH: Agreed; PSxH: Agreed Nursing Documentation-PMH Past Medical History: No History, Except For Hx Hypertension: Yes Hx Asthma: No Hx COPD: No Hx Diabetes: No Hx Cancer: Yes - right kindey Hx Gastrointestinal Problems: Yes - acid reflux Hx Dialysis: No Hx Neurological Problems: No Review of Systems All Other Systems: negative except mentioned in HPI Physical Exam Vital Signs Date Time Temp Pulse Resp B/P (MAP) Pulse Ox O2 Delivery O2 Flow Rate FiO2 11/03/18 19:32 98.1 102 16 134/59 98 Room Air Sp02 EP Interpretation: reviewed, normal General Appearance: no apparent distress, alert, GCS 15, non-toxic Head: normocephalic Eyes: bilateral eye normal inspection, bilateral eye PERRL ENT: normal ENT inspection Neck: normal inspection, supple, no bony tend Respiratory: normal inspection Cardiovascular #1: normal inspection Gastrointestinal: normal inspection Rectal: deferred Genitourinary: no CVA tenderness, no vertebral tenderness Musculoskeletal: tender - paraspinal lumbar tenderness Neurologic: alert, oriented x3, responsive, motor strength/tone normal, sensory intact, speech normal Psychiatric: normal inspection Skin: abrasions - abrasions to fingers on R hand Lymphatic: normal inspection Medical Decision Making Diagnostic Impression: Primary Impression: Back pain Qualified Codes: M54.5 - Low back pain Additional Impressions: Multiple injuries due to trauma Head injury Qualified Codes: S09.90XA - Unspecified injury of head, initial encounter ER Course Hospital Course 67-year-old M presents ED complaining of headache with back pain s/p fall. no LOC Differential diagnoses include: skull fx, intracranial injury, concussion Clinical course Patient placed on stretcher. After initial history and physical I ordered CT head and pain medications CT head shows no acute process. Abrasions cleaned on the right hand. There is no vertebral body tenderness. Pain is paraspinal and muscular. Given Tylenol, Robaxin, Lidoderm patch here with pain improved. Discussed findings with patient. Safe for discharge with close outpatient follow-up Diagnosis - back pain, multiple injuries due to trauma, head injury Stable and discharged to home with Rx Tylenol, Robaxin. Followup with PMD. Return to ED if symptoms recur or worsen CT/MRI/US Diagnostic Results CT/MRI/US Diagnostic Results : Imaging Test Ordered: CT Head Impression no acute process Last Vital Signs Date Time Temp Pulse Resp B/P (MAP) Pulse Ox O2 Delivery O2 Flow Rate FiO2 11/03/18 20:46 98.1 11/03/18 20:27 94 16 126/64 98 Room Air Status: improved Disposition: HOME, SELF-CARE Condition: Stable Scripts Methocarbamol* (ROBAXIN-750*) 750 Mg Tablet 750 MG PO TID, #21 TAB 0 Refills Prov: Tha Michael MD 11/03/18 Ibuprofen* (MOTRIN*) 600 Mg Tablet 600 MG ORAL THREE TIMES A DAY, #30 TAB 0 Refills Prov: Tha Michael MD 11/03/18 Patient Instructions: Head Injury, Adult, [id number] Tha Michael MD Nov 03, 2018 22:12
--- NOTE | 2018-11-04 15:52 | Diagnostic Imaging Report ---
EXAM: CT Head Without Intravenous Contrast CLINICAL HISTORY: H/A TECHNIQUE: Axial computed tomography images of the head/brain without intravenous contrast. CTDI is 70.38 mGy and DLP is 1418 mGy-cm. One or more of the following dose reduction techniques were used: automated exposure control, adjustment of the mA and/or kV according to patient size, use of iterative reconstruction technique. COMPARISON: No relevant prior studies available. FINDINGS: Brain: No hemorrhage. No edema. Ventricles: No ventriculomegaly. Bones/joints: No acute fracture. Soft tissues: Unremarkable. Sinuses: Sinus mucosal thickening-debris in the maxillary sinuses. Mastoid air cells: No mastoid effusion. IMPRESSION: 1. No acute process. 2. Sinus mucosal thickening-debris in the maxillary sinuses.
== END 2018-11-03 21:25 | disposition home or self-care (01) ==
LOC: EMR 19:57
DX: S09.90XA Unspecified injury of head, initial encounter (principal); S60.511A Abrasion of right hand, initial encounter; M54.5 Low back pain; I10 Essential (primary) hypertension; K21.9 Gastro-esophageal reflux disease without esophagitis; W01.198A Fall on same level from slipping, tripping and stumbling with subsequent striking against other object, initial encounter; Y93.01 Activity, walking, marching and hiking; Y92.480 Sidewalk as the place of occurrence of the external cause
CPT/HCPCS: 70450; 99284

== ENCOUNTER 2018-12-15 13:04 | Emergency (ER) | payer MEDICARE, OTHER ==
[~2018-12-15] VITALS: Ht 170.2 cm; Wt 99.8 kg
[~2018-12-15 13:04] MED LIST changes: +ROBAXIN-750750 MG PO
[2018-12-15 13:12] VITALS: BP 119/73
--- NOTE | 2018-12-15 13:37 | NUR ---
ED Nurse Note: Patient presents to ER due to sore throat, 'feeling scratchy' and slight cough with clear phlegm. Reports no fever or chills. Regular, unlabored breathing with clear breath sounds in all lung hensley noted. No hoarseness or audible wheezing noted. No facial grimacing or guarding noted.
--- NOTE | 2018-12-15 13:59 | Emergency Room Report ---
History of Present Illness General Chief Complaint: Sore Throat Source: Patient Present Illness HPI 68-year-old male presents to the emergency department complaining of 2 out of 10 in severity sore throat 2 days in addition to new onset of cough. Patient reports chills he denies fevers. Patient denies swelling of the lower extremities he eyes chest pain, neck pain or stiffness or acute headache. Patient reports ill contacts as his grandchildren are currently being treated for strep throat. She states his pain is exacerbated upon swallowing. Patient reports that he took some Tylenol which helped minimized his pain slightly. Past medical history of renal disease, diabetes and cardiac history. Denies productive cough/ sputum. Allergies: Coded Allergies: IODINE (Verified Allergy, Unknown, 06/07/10) Patient History Past Medical History: see triage record Past Surgical History: none Pertinent Family History: none Reviewed Nursing Documentation: PMH: Agreed; PSxH: Agreed Nursing Documentation-PMH Past Medical History: No History, Except For Hx Hypertension: Yes Hx Asthma: No Hx COPD: No Hx Diabetes: No Hx Cancer: Yes - right kidney removal 1998 Hx Gastrointestinal Problems: Yes - GERD Hx Dialysis: No History Of Psychiatric Problem: No Hx Neurological Problems: No Review of Systems All Other Systems: negative except mentioned in HPI Physical Exam Vital Signs Date Time Temp Pulse Resp B/P (MAP) Pulse Ox O2 Delivery O2 Flow Rate FiO2 12/15/18 13:12 98.4 68 16 119/73 98 Room Air Sp02 EP Interpretation: reviewed, normal General Appearance: no apparent distress, alert, GCS 15, non-toxic Head: normocephalic, atraumatic Eyes: bilateral eye normal inspection, bilateral eye PERRL ENT: hearing grossly normal, normal voice, TMs + canals normal, uvula midline, moist mucus membranes, nasal congestion, tonsillar swelling, pharyngeal erythema Neck: full range of motion, no meningismus Respiratory: chest non-tender, lungs clear, normal breath sounds, no respiratory distress, no accessory muscle use, no wheezing, speaking full sentences Cardiovascular #1: regular rate, rhythm, no edema, normal capillary refill Genitourinary: normal inspection Musculoskeletal: back normal, gait/station normal, normal range of motion, non- tender Neurologic: alert, oriented x3, responsive, motor strength/tone normal, sensory intact, speech normal, grossly normal Psychiatric: judgement/insight normal Skin: normal color, no rash, warm/dry, well hydrated Lymphatic: no adenopathy Medical Decision Making PA Attestation Dr. atwood is my supervising Physician whom patient management has been discussed with. Diagnostic Impression: Primary Impression: Pharyngitis, acute Qualified Codes: J02.9 - Acute pharyngitis, unspecified ER Course 68-year-old male presents to the emergency department complaining of 2 out of 10 in severity sore throat 2 days in addition to new onset of cough. Patient reports chills he denies fevers. Patient denies swelling of the lower extremities he eyes chest pain, neck pain or stiffness or acute headache. Patient reports ill contacts as his grandchildren are currently being treated for strep throat. She states his pain is exacerbated upon swallowing. Patient reports that he took some Tylenol which helped minimized his pain slightly. Past medical history of renal disease, diabetes and cardiac history. Denies productive cough/ sputum. Ddx considered but are not limited to: pharyngitis, strep, [employer], ludwigs angina, URI Vital signs: are WNL, pt. is afebrile H&PE are most consistent with: pharyngitis presumed strep. ORDERS: None required at this time as the diagnosis is clinical ED INTERVENTIONS: none required at this time. DISCHARGE: At this time pt. is stable for d/c to home. Will provide printed patient care instructions, and any necessary prescriptions. Care plan and follow up instructions have been discussed with the patient prior to discharge. Last Vital Signs Date Time Temp Pulse Resp B/P (MAP) Pulse Ox O2 Delivery O2 Flow Rate FiO2 12/15/18 13:12 98.4 16 119/73 98 Room Air 12/15/18 13:12 67 Disposition: HOME, SELF-CARE Condition: Stable Scripts Lidocaine HCl 2% Viscous (Lidocaine HCl 2% Viscous) 100 Ml Solution 10 ML ORAL QID, #220 ML Prov: Gloria Hilliard 12/15/18 Amoxicillin* (AMOXIL*) 500 Mg Capsule 500 MG ORAL BID for 10 Days, #20 CAP Prov: Gloria Hilliard 12/15/18 Patient Instructions: Tonsillitis Additional Instructions: Take medications as directed. Follow up with a Primary Care Provider in 3-5 days, even if your symptoms have resolved. --Please review list of primary care clinics, if you do not already have a primary care provider Return sooner to ED if new symptoms occur, or current symptoms become worse. - Please note that this Emergency Department Report was dictated using [email or web address] issue clerk technology software, occasionally this can lead to erroneous entry secondary to interpretation by the dictation equipment. Gloria Hilliard Dec 15, 2018 13:59
[2018-12-15] MEDS ORDERED: LIDOCAINE VISC100 ML ORAL (14:01)
[2018-12-15] MEDS ORDERED: AMOXICILLIN500 MG ORAL (14:01)
[2018-12-15 14:26] VITALS: BP 119/73
--- NOTE | 2018-12-15 14:29 | NUR ---
ED Nurse Note: Patient is being discharged from medical care. D/C instruction and prescription given. All questions were answered. Ambulated out with steady gait with all his belongings.
== END 2018-12-15 14:32 | disposition home or self-care (01) ==
LOC: EMR 14:15
DX: J02.9 Acute pharyngitis, unspecified (principal); I10 Essential (primary) hypertension; K21.9 Gastro-esophageal reflux disease without esophagitis; Z85.528 Personal history of other malignant neoplasm of kidney
CPT/HCPCS: 99282

== ENCOUNTER 2019-02-06 12:07 | Emergency (ER) | payer MEDICARE, OTHER ==
[~2019-02-06] VITALS: Ht 172.7 cm; Wt 81.6 kg
[~2019-02-06 12:07] MED LIST changes: +LIDOCAINE VISC100 ML ORAL
[2019-02-06 12:21] VITALS: BP 129/78
[2019-02-06 12:27] VITALS: BP 129/78
--- NOTE | 2019-02-06 12:27 | NUR ---
ED Nurse Note: Pt left w/o being seen.
--- NOTE | 2019-02-06 14:02 | Emergency Room Report ---
History of Present Illness General Chief Complaint: Chest Pain Source: Patient Present Illness Allergies: Coded Allergies: IODINE (Verified Allergy, Unknown, 06/07/10) Nursing Documentation-H Past Medical History: No History, Except For Hx Hypertension: Yes Hx Asthma: No Hx COPD: No Hx Diabetes: No Hx Cancer: Yes - right kidney removal 1998 Hx Gastrointestinal Problems: Yes - GERD Hx Dialysis: No Hx Neurological Problems: No Physical Exam Vital Signs Date Time Temp Pulse Resp B/P (MAP) Pulse Ox O2 Delivery O2 Flow Rate FiO2 02/06/19 12:16 97.9 89 20 129/78 100 Room Air Medical Decision Making Diagnostic Impression: Primary Impression: Patient left without being seen ER Course Patient left without being seen Last Vital Signs Date Time Temp Pulse Resp B/P (MAP) Pulse Ox O2 Delivery O2 Flow Rate FiO2 02/06/19 12:27 97.9 20 129/78 100 Room Air 02/06/19 12:21 89 Status: unchanged Disposition: LEFT W/OUT BEING SEEN Condition: Unknown Referrals: Brian Andrade MD (PCP) Tha Michael MD Feb 06, 2019 14:02
== END 2019-02-06 13:00 | disposition left against medical advice (07) ==
LOC: EDBEDREQ 12:21 → CANBEDREQ 12:22 → EDBEDREQ 12:22 → EMR 12:35
DX: R07.9 Chest pain, unspecified (principal); I10 Essential (primary) hypertension; K21.9 Gastro-esophageal reflux disease without esophagitis; Z90.5 Acquired absence of kidney; Z53.21 Procedure and treatment not carried out due to patient leaving prior to being seen by health care provider

== ENCOUNTER 2019-02-12 12:01 | Outpatient (CLI) | payer OTHER, MEDICARE ==
[2019-02-12 12:25] LABS: BASOPHILS % (AUTO) 1.3 % (0.0-2.0); EOSINOPHILS % (AUTO) 2.1 % (0.0-3.0); HEMATOCRIT 42.5 % (42.0-52.0); HEMOGLOBIN 13.6 G/DL (14.2-18.0); LYMPHOCYTES % (AUTO) 24.6 % (20.0-45.0); MEAN CORPUSCULAR VOLUME 83 FL (80-99); MONOCYTES % (AUTO) 5.4 % (1.0-10.0); NEUTROPHILS % (AUTO) 66.6 % (45.0-75.0); PLATELET COUNT 203 K/UL (150-450); RED BLOOD COUNT 5.12 M/UL (4.70-6.10); RED CELL DISTRIBUTION WIDTH 14.1 % (11.6-14.8); WHITE BLOOD COUNT 7.5 K/UL (4.8-10.8)
[2019-02-12 12:44] LABS: ALANINE AMINOTRANSFERASE 19 U/L (12-78); ALBUMIN 3.7 G/DL (3.4-5.0); ALBUMIN/GLOBULIN RATIO 0.8 (1.0-2.7); ALKALINE PHOSPHATASE 102 U/L (46-116); ANION GAP 12 mmol/L (5-15); ASPARTATE AMINO TRANSFERASE 10 U/L (15-37); BILIRUBIN,TOTAL 0.4 MG/DL (0.2-1.0); BLOOD UREA NITROGEN 21 mg/dL (7-18); CALCIUM 9.6 MG/DL (8.5-10.1); CARBON DIOXIDE 25 MMOL/L (21-32); CHLORIDE 102 MMOL/L (98-107); CHOLESTEROL 129 MG/DL (< 200); CREATININE 1.6 MG/DL (0.55-1.30); HDL CHOLESTEROL 42 MG/DL (40-60); POTASSIUM 4.2 MMOL/L (3.5-5.1); SODIUM 139 MMOL/L (136-145); TRIGLYCERIDES 76 MG/DL (30-150)
== END 2019-02-12 14:01 | disposition home or self-care (01) ==
LOC: LAB 12:01
DX: I10 Essential (primary) hypertension (principal); M54.9 Dorsalgia, unspecified; E78.5 Hyperlipidemia, unspecified
CPT/HCPCS: 36415; 80053; 80061; 84550; 85025

== ENCOUNTER 2019-04-27 11:57 | Emergency (ER) | payer MEDICARE, OTHER ==
[~2019-04-27] VITALS: Ht 167.6 cm; Wt 89.4 kg
[~2019-04-27 11:57] MED LIST changes: +LEVOFLOXACIN500 MG ORAL
[2019-04-27 12:30] VITALS: BP 111/67
--- NOTE | 2019-04-27 12:30 | NUR ---
ED Nurse Note: pt walked in to ED due to pain on lower back pain. pt ambulatory with steady gait. facial grimacing noted intermittenly. AAO x4. respirations even and non-labored noted. will wait for the further order.
--- NOTE | 2019-04-27 12:46 | Emergency Room Report ---
History of Present Illness General Chief Complaint: Back Pain-No Injury Source: Medical Record Present Illness HPI 68-year-old male presents to the emergency department complaining of acute onset of 08/09 in severity left-sided low back pain status post sitting for several hours while reading in his car. Patient denies trauma or fall he denies saddle anesthesia, paresthesias, urinary incontinence or urinary retention. Patient denies history of spinal problems. Patient denies history of cancer or recent spinal procedures. Patient denies night sweats or constitutional symptoms. Denies hematuria, dysuria or flank pain. Denies radiation of his pain. Pt. reports that getting up and down from the sitting position as well as bending forward exacerbates his symptoms he denies any relieving factors at this time Allergies: Coded Allergies: IODINE (Verified Allergy, Unknown, 06/07/10) Patient History Past Medical History: see triage record Past Surgical History: none Pertinent Family History: none Reviewed Nursing Documentation: PMH: Agreed; PSxH: Agreed Nursing Documentation-PMH Past Medical History: No History, Except For Hx Hypertension: Yes Hx Asthma: No Hx COPD: No Hx Diabetes: No Hx Cancer: Yes - right kidney removal 1998 Hx Gastrointestinal Problems: Yes - GERD Hx Dialysis: No History Of Psychiatric Problem: No Hx Neurological Problems: No Review of Systems All Other Systems: negative except mentioned in HPI Physical Exam Vital Signs Date Time Temp Pulse Resp B/P (MAP) Pulse Ox O2 Delivery O2 Flow Rate FiO2 04/27/19 12:14 98.2 92 16 111/67 (82) 96 Room Air Sp02 EP Interpretation: reviewed, normal General Appearance: no apparent distress, alert, GCS 15, non-toxic Head: normocephalic, atraumatic Eyes: bilateral eye normal inspection, bilateral eye PERRL ENT: hearing grossly normal, normal voice Neck: full range of motion Respiratory: lungs clear, normal breath sounds, speaking full sentences Cardiovascular #1: regular rate, rhythm Gastrointestinal: non tender, soft Genitourinary: normal inspection, no CVA tenderness Musculoskeletal: back normal, gait/station normal, normal range of motion, tender - Left lumbar paraspinal TTP, and upper left gluteal ttp, no midline spinous process tenderness, FROM with some exacerbation of pain, ambulatory without assistance Neurologic: alert, oriented x3, responsive, motor strength/tone normal, sensory intact, normal gait, speech normal, grossly normal Psychiatric: judgement/insight normal Skin: normal color, no rash, warm/dry, well hydrated Medical Decision Making PA Attestation Dr. Tilley is my supervising physician whom pt. management has been discussed with. Diagnostic Impression: Primary Impression: Back pain Qualified Codes: M54.5 - Low back pain ER Course Pt. presents to ED c/o LBP. Ddx considered: epidural abscess, fracture, sprain/strain, meningitis, spinal chord injury, sciatica, cauda equina, Pyelonephritis, renal calculi just to name a few. Vital signs reviewed and are WNL during ED visit. Pt. is afebrile with no signs of infection No new symptoms, and denies recent trauma. No saddle anesthesia noted, Pt. denies incontinence Neurovascular is intact * Mild Tenderness to palpation to paraspinal muscles of the Lumbar back without midline tenderness. ORDERS: none warranted at this time. INTERVENTIONS: -Tylenol 650mg PO DISCHARGE: At this time pt. is stable for d/c to home. Will provide printed patient care instructions, and any necessary prescriptions. Care plan and follow up instructions have been discussed with the patient prior to discharge. Last Vital Signs Date Time Temp Pulse Resp B/P (MAP) Pulse Ox O2 Delivery O2 Flow Rate FiO2 04/27/19 12:14 98.2 92 16 111/67 (82) 96 Room Air Status: improved Disposition: HOME, SELF-CARE Condition: Stable Patient Instructions: Back Pain, Adult Additional Instructions: Take medications as directed. Follow up with a Primary Care Provider in 3-5 days, even if your symptoms have resolved. --Please review list of primary care clinics, if you do not already have a primary care provider Return sooner to ED if new symptoms occur, or current symptoms become worse. Do not drink alcohol, drive, or operate heavy machinery while taking - Flexeril ( Muscle Relaxer) - as this may cause drowsiness. - Please note that this Emergency Department Report was dictated using [employer] cutting machine operator technology software, occasionally this can lead to erroneous entry secondary to interpretation by the dictation equipment. Gloria Hilliard Apr 27, 2019 12:46
[2019-04-27] MEDS ORDERED: CYCLOBENZAPRINE10 MG ORAL (13:09)
[2019-04-27] MEDS ORDERED: TYLENOL EXTRA500 MG ORAL (13:09)
[2019-04-27 13:20] VITALS: BP 111/67
--- NOTE | 2019-04-27 13:20 | NUR ---
ER DISCHARGE NOTE: Patient is cleared to be discharged per ERMD, pt is aox4, on room air, with stable vital signs. pt was given dc and prescription instructions, pt was able to verbalize understanding, pt id band removed. pt is able to ambulate with steady gait. pt took all belongings.
== END 2019-04-27 13:20 | disposition home or self-care (01) ==
LOC: EMR 13:09
DX: M54.5 Low back pain (principal); Z91.041 Radiographic dye allergy status; I10 Essential (primary) hypertension; K21.9 Gastro-esophageal reflux disease without esophagitis; Z85.528 Personal history of other malignant neoplasm of kidney; Z90.5 Acquired absence of kidney
CPT/HCPCS: 99282

== ENCOUNTER → 2019-08-03 | Emergency (ER) | payer MEDICARE, OTHER ==
[~2019-08-03] VITALS: Ht 170.2 cm; Wt 84.4 kg
[~2019-08-03] MED LIST changes: +PREDNISONE50 MG ORAL; +TYLENOL EXTRA500 MG ORAL
[2019-08-03 09:20] VITALS: BP 149/75
--- NOTE | 2019-08-03 09:20 | NUR ---
ED Nurse Note: pt is aaox4, vss with no acute distress. pt. came with nasal congestion for 3 weeks, no fevers
--- NOTE | 2019-08-03 09:29 | Emergency Room Report ---
History of Present Illness General Chief Complaint: Upper Respiratory Illness Source: Patient Present Illness HPI 68-year-old male presents with 3 weeks of congestion, no cough no fever no chills, no facial pain, severity is mild, symptoms are constant no aggravating leaving factors patient presents for evaluation Allergies: Coded Allergies: IODINE (Verified Allergy, Unknown, 06/07/10) Patient History Past Medical History: see triage record Reviewed Nursing Documentation: PMH: Agreed; PSxH: Agreed Nursing Documentation-PMH Past Medical History: No History, Except For Hx Hypertension: Yes Hx Asthma: No Hx COPD: No Hx Diabetes: No Hx Cancer: Yes - right kidney removal 1998 Hx Gastrointestinal Problems: Yes - GERD Hx Dialysis: No Hx Neurological Problems: No Review of Systems All Other Systems: negative except mentioned in HPI Physical Exam Vital Signs Date Time Temp Pulse Resp B/P (MAP) Pulse Ox O2 Delivery O2 Flow Rate FiO2 08/03/19 09:11 97.7 86 18 140/73 (95) 98 Room Air Sp02 EP Interpretation: reviewed, normal General Appearance: well appearing, no apparent distress, alert Head: normocephalic, atraumatic Eyes: bilateral eye PERRL, bilateral eye EOMI ENT: uvula midline, moist mucus membranes, nasal congestion Neck: supple, thyroid normal, supple/symm/no masses Respiratory: lungs clear, no respiratory distress, no retraction, no accessory muscle use Cardiovascular #1: normal peripheral pulses, regular rate, rhythm, no edema, no gallop, no murmur Gastrointestinal: non tender, soft, no guarding, no rebound Musculoskeletal: normal inspection Neurologic: alert, oriented x3 Psychiatric: mood/affect normal Skin: no rash, warm/dry Medical Decision Making Diagnostic Impression: Primary Impression: Upper respiratory infection Qualified Codes: J06.9 - Acute upper respiratory infection, unspecified ER Course 68-year-old male presents with most likely a URI, no facial pain, Disposition home with return precautions Last Vital Signs Date Time Temp Pulse Resp B/P (MAP) Pulse Ox O2 Delivery O2 Flow Rate FiO2 08/03/19 09:20 97.7 80 18 149/75 98 Room Air Disposition: HOME, SELF-CARE Condition: Stable Scripts Prednisone* (PREDNISONE*) 50 Mg Tablet 50 MG ORAL DAILY, #4 TAB 0 Refills Prov: Peng Larson MD 08/03/19 Referrals: [facility] Patient Instructions: Upper Respiratory Infection, Adult Additional Instructions: The patient was provided with discharge instructions, notified to follow-up with a primary care doctor and or specialist in the next 24-48 hours, and to return to the ED if they have worsening of their symptoms. Please note that this report is being documented using [employer] technology. This can lead to erroneous entry secondary to incorrect interpretation by the dictating instrument. Peng Larson MD Aug 03, 2019 09:29
== END | disposition home or self-care (01) ==
LOC: EMR 09:33
DX: J06.9 Acute upper respiratory infection, unspecified (principal); I10 Essential (primary) hypertension; K21.9 Gastro-esophageal reflux disease without esophagitis; Z91.041 Radiographic dye allergy status; Z85.528 Personal history of other malignant neoplasm of kidney; Z90.5 Acquired absence of kidney
CPT/HCPCS: 99282; J7512

== ENCOUNTER 2019-10-05 16:45 | Emergency (ER) | payer MEDICARE, OTHER ==
[~2019-10-05] VITALS: Ht 167.6 cm; Wt 77.1 kg
[2019-10-05 16:58] VITALS: BP 126/77
--- NOTE | 2019-10-05 17:01 | NUR ---
ED Nurse Note: Patient complaining of lower back pain x 3 weeks, feels pain on right side. No recent fall, injury, or known cause. States he might have slept in a position that aggravated it. Patient has taken home medications with no relief. No radiation of pain or other s/s.
--- NOTE | 2019-10-05 17:20 | Emergency Room Report ---
History of Present Illness General Chief Complaint: Back Pain-No Injury Source: Patient Present Illness HPI 68-year-old male with chronic low back pain here complaining of worsening pain x3 weeks. Patient did not fall or injure himself and denies lifting heavy objects. Patient reports that usually combination of Flexeril, Tylenol works for him. Patient has 1 kidney and cannot take into within the ibuprofen family. Patient also was recently treated for sinus infection about 2 weeks ago however reports that symptoms never improved. Complains of sinus pressure, sore throat, cough and congestion however denies fever and chills. Denies chest pain, shortness of breath, palpitation, abdominal pain, nausea vomiting. Denies his back pain radiating to legs, numbness and tingling. Denies urinary and bowel incontinence or saddle paresthesia. Allergies: Coded Allergies: IODINE (Verified Allergy, Unknown, 06/07/10) Patient History Past Medical History: see triage record Past Surgical History: unable to obtain Pertinent Family History: none Immunizations: UTD Reviewed Nursing Documentation: PMH: Agreed; PSxH: Agreed Nursing Documentation-PMH Past Medical History: No History, Except For Hx Hypertension: Yes Hx Asthma: No Hx COPD: No Hx Diabetes: No Hx Cancer: Yes - right kidney removal 1998 Hx Gastrointestinal Problems: Yes - GERD Hx Dialysis: No Hx Neurological Problems: No Review of Systems All Other Systems: negative except mentioned in HPI Physical Exam Vital Signs Date Time Temp Pulse Resp B/P (MAP) Pulse Ox O2 Delivery O2 Flow Rate FiO2 10/05/19 16:58 98.2 16 126/77 99 Room Air 10/05/19 16:58 93 Sp02 EP Interpretation: reviewed, normal General Appearance: no apparent distress, alert, GCS 15, non-toxic Head: normocephalic, atraumatic Eyes: bilateral eye normal inspection, bilateral eye PERRL ENT: hearing grossly normal, no angioedema, normal voice, TMs + canals normal, nasal congestion, tonsillar swelling, other - maxillary sinuses ttp Neck: full range of motion, thyroid normal, no meningismus, no bony tend, supple/symm/no masses Respiratory: chest non-tender, lungs clear, normal breath sounds, no rhonchi, no wheezing, speaking full sentences Cardiovascular #1: regular rate, rhythm, no edema, no murmur, normal capillary refill Cardiovascular #2: 2+ dorsalis pedis (R), 2+ dorsalis pedis (L) Gastrointestinal: normal bowel sounds, non tender, soft, non-distended, no guarding, no rebound Genitourinary: no CVA tenderness Musculoskeletal: back normal, normal range of motion, digits/nails normal, no calf tenderness, pelvis stable, gait/station normal Neurologic: alert, motor strength/tone normal, oriented x3, sensory intact, responsive, speech normal Psychiatric: judgement/insight normal, memory normal, mood/affect normal, no suicidal/homicidal ideation Skin: no rash Lymphatic: no adenopathy Medical Decision Making PA Attestation All diagnoses and treatment plans were reviewed and discussed with my supervising physician Dr. Cantrell Diagnostic Impression: Primary Impression: Chronic back pain Additional Impression: Sinusitis ER Course 68-year-old male with chronic low back pain here complaining of worsening pain x3 weeks. Patient did not fall or injure himself and denies lifting heavy objects. Patient reports that usually combination of Flexeril, Tylenol works for him. Patient has 1 kidney and cannot take into within the ibuprofen family. Patient also was recently treated for sinus infection about 2 weeks ago however reports that symptoms never improved. Complains of sinus pressure, sore throat, cough and congestion however denies fever and chills. Denies chest pain, shortness of breath, palpitation, abdominal pain, nausea vomiting. Denies his back pain radiating to legs, numbness and tingling. Denies urinary and bowel incontinence or saddle paresthesia. Ddx considered but are not limited to: Lumbar spine sprain, strain, fracture, contusion, neuropathy, chronic back pain, pyelonephritis, sinusitis, strep pharyngitis, URI Vital signs: are WNL, pt. is afebrile H&PE are most consistent with: Sinusitis secondary to strep pharyngitis that he had earlier. Chronic back pain ORDERS: No x-ray necessary as this is chronic pain patient did not fall. Flexeril, Tylenol, amoxicillin, Medrol Dosepak as patient reported that worked for her lupus last time ER intervention: None DISCHARGE: At this time pt. is stable for d/c to home. Will provide printed patient care instructions, and any necessary prescriptions. Care plan and follow up instructions have been discussed with the patient prior to discharge. Patient to follow-up with her primary care provider, if worsening symptoms return to emergency room. At this time he may need physical therapy and Ortho referral. Last Vital Signs Date Time Temp Pulse Resp B/P (MAP) Pulse Ox O2 Delivery O2 Flow Rate FiO2 10/05/19 16:58 98.2 93 16 126/77 (93) 99 Room Air Disposition: HOME, SELF-CARE Condition: Stable Scripts Amoxicillin* (AMOXIL*) 500 Mg Capsule 500 MG ORAL EVERY 12 HOURS for 10 Days, #20 CAP Prov: Fercho Holm 10/05/19 Prednisone* (PREDNISONE*) 10 Mg Tablet 2 TAB ORAL DAILY for 5 Days, #10 TAB 0 Refills Prov: Fercho Holm 10/05/19 Acetaminophen* (ACETAMINOPHEN 325MG TABLET*) 325 Mg Tablet 650 MG ORAL Q6H PRN for For Pain, #30 TAB Prov: Fercho Holm 10/05/19 Cyclobenzaprine Hcl* (FLEXERIL*) 10 Mg Tablet 10 MG ORAL THREE TIMES A DAY for 10 Days, #30 TAB Prov: Fercho Holm 10/05/19 Patient Instructions: Back Pain, Adult, Sinusitis, Adult, [id number] Additional Instructions: Take medication as directed, follow-up with your primary care provider, if worsening symptoms return to the emergency room Fercho Holm Oct 05, 2019 17:20
[2019-10-05] MEDS ORDERED: PREDNISONE10 MG ORAL (17:24)
[2019-10-05] MEDS ORDERED: CYCLOBENZAPRINE10 MG ORAL (17:24)
[2019-10-05] MEDS ORDERED: ACETAMINOPHEN325 M1 ORAL (17:24)
[2019-10-05] MEDS ORDERED: AMOXICILLIN500 MG ORAL (17:24)
[2019-10-05 17:50] VITALS: BP 125/77
== END 2019-10-05 17:50 | disposition home or self-care (01) ==
LOC: EMR 17:35
DX: G89.29 Other chronic pain (principal); M54.5 Low back pain; J32.9 Chronic sinusitis, unspecified; I10 Essential (primary) hypertension; K21.9 Gastro-esophageal reflux disease without esophagitis; Z90.5 Acquired absence of kidney; Z88.8 Allergy status to other drugs, medicaments and biological substances
CPT/HCPCS: 99283

== ENCOUNTER 2020-10-15 19:45 | Emergency (ER) | payer MEDICARE, OTHER ==
[~2020-10-15] VITALS: Ht 170.2 cm; Wt 90.7 kg
[~2020-10-15 19:45] MED LIST changes: +ACETAMINOPHEN325 M1 ORAL; +PREDNISONE10 MG ORAL
--- NOTE | 2020-10-15 19:46 | NUR ---
ED Nurse Note: patient not in the waiting room.
[2020-10-15 19:53] VITALS: BP 113/71
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
--- NOTE | 2020-10-15 20:18 | NUR ---
ED Nurse Note: Urine sent to lab.
--- NOTE | 2020-10-15 20:30 | NUR ---
ED Nurse Note: Pt refused CT scan, MD notified, explained risk, verbally understood.
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
[2020-10-15 20:42] VITALS: BP 113/71
--- NOTE | 2020-10-15 20:42 | NUR ---
ED Nurse Note: Pt cleared by ERMD for discharge. DC instructions was given and explained to pt and verbalized understanding of teachings. All medical deviecs such as ID band removed. Pt is AAO x4, ambulatory and left with all personal belongings.
[2020-10-15 20:48] LABS: APPEARANCE,URINE CLEAR; BILIRUBIN, URINE NEGATIVE (NEGATIVE); COLOR,URINE PALE YELLOW; GLUCOSE, URINE (UA) NEGATIVE (NEGATIVE); KETONES,URINE NEGATIVE (NEGATIVE); LEUKOCYTE ESTERASE ,URINE NEGATIVE (NEGATIVE); NITRITE,URINE NEGATIVE (NEGATIVE); PH,URINE 6 (4.5-8.0); PROTEIN,URINE NEGATIVE (NEGATIVE); UROBILINOGEN,URINE 1 MG/DL (0.0-1.0)
== END 2020-10-15 20:42 | disposition home or self-care (01) ==
LOC: EMR 20:20
DX: S13.4XXA Sprain of ligaments of cervical spine, initial encounter (principal); M54.9 Dorsalgia, unspecified; I10 Essential (primary) hypertension; V43.52XA Car driver injured in collision with other type car in traffic accident, initial encounter; Y92.524 Gas station as the place of occurrence of the external cause; Z85.528 Personal history of other malignant neoplasm of kidney; Z90.5 Acquired absence of kidney; Z88.8 Allergy status to other drugs, medicaments and biological substances
CPT/HCPCS: 81001; 99283